=== PATIENT | male | born 1955 | race African-American/Black ===

== ENCOUNTER 2016-11-07 11:45 | Outpatient (CLI) | payer MEDICARE, OTHER ==
[~2016-11-07 11:45] MED LIST: BENAZEPRIL HCL20 MG ORAL; EYE DROPS15 M1 OP; FOLIC ACID1 MG ORAL; KEPPRA500 MG ORAL; LORATADINE10 M1 PO; NASAL SPRAY30 M1 NS; SERTRALINE HCL50 MG ORAL; ZOCOR20 M1 ORAL; ZYRTEC10 MG ORAL
--- NOTE | 2016-11-07 14:11 | Diagnostic Imaging Report ---
Indication: pain Findings: 3 views of the right hand were obtained. Normal bony mineralization and alignment are demonstrated. No acute fractures, erosions, or periosteal reaction are seen. Soft tissues are unremarkable. Impression: Negative examination of the right hand.
--- NOTE | 2016-11-07 14:12 | Diagnostic Imaging Report ---
Indication: pain Findings: 3 views of the left hand were obtained. Normal bony mineralization and alignment are demonstrated. No acute fractures, erosions, or periosteal reaction are seen. Soft tissues are unremarkable. Impression: Negative examination of the left hand.
== END 2016-11-07 13:45 | disposition home or self-care (01) ==
LOC: RAD 11:45
DX: M25.542 Pain in joints of left hand (principal); M25.541 Pain in joints of right hand

== ENCOUNTER 2017-08-31 11:38 | Emergency (ER) | payer MEDICARE, OTHER ==
[~2017-08-31] VITALS: Ht 165.1 cm; Wt 68.9 kg
[2017-08-31] MEDS ORDERED: BENAZEPRIL HCL20 MG ORAL (11:46)
[2017-08-31 11:58] VITALS: BP 191/96
[2017-08-31 12:23] LABS: BASOPHILS % (AUTO) 1.9 % (0.0-2.0); EOSINOPHILS % (AUTO) 17.7 % (0.0-3.0); HEMATOCRIT 48.9 % (42.0-52.0); HEMOGLOBIN 15.8 G/DL (14.2-18.0); MEAN CORPUSCULAR VOLUME 85 FL (80-99); MONOCYTES % (AUTO) 6.3 % (1.0-10.0); NEUTROPHILS % (AUTO) 53.2 % (45.0-75.0); PLATELET COUNT 119 K/UL (150-450); RED BLOOD COUNT 5.74 M/UL (4.70-6.10); RED CELL DISTRIBUTION WIDTH 11.5 % (11.6-14.8); WHITE BLOOD COUNT 6.6 K/UL (4.8-10.8)
[2017-08-31] MEDS ORDERED: Enalaprilat 2.5mg/2ml Inj IV ONE (12:30)
[2017-08-31 12:32] LABS: ANION GAP 7 mmol/L (5-15); BLOOD UREA NITROGEN 12 mg/dL (7-18); CALCIUM 8.6 MG/DL (8.5-10.1); CARBON DIOXIDE 28 MMOL/L (21-32); CHLORIDE 101 MMOL/L (98-107); POTASSIUM 4.4 MMOL/L (3.5-5.1); SODIUM 136 MMOL/L (136-145)
[2017-08-31 12:38] LABS: ALANINE AMINOTRANSFERASE 70 U/L (12-78); ALBUMIN 3.4 G/DL (3.4-5.0); ALBUMIN/GLOBULIN RATIO 0.8 (1.0-2.7); ALKALINE PHOSPHATASE 168 U/L (46-116); ASPARTATE AMINO TRANSFERASE 67 U/L (15-37); BILIRUBIN,TOTAL 0.9 MG/DL (0.2-1.0)
[2017-08-31 14:09] VITALS: BP 166/81
[2017-08-31 14:30] VITALS: BP 166/81
--- NOTE | 2017-09-01 07:14 | Emergency Room Report ---
History of Present Illness General Chief Complaint: Hypertension Present Illness HPI Patient is a 62-year-old male presented after increased blood pressure. Patient was sent in from clinic. Patient was noted to be followed by Dr. Hylton. The patient denies any headache. He denies any chest discomfort. He denies any visual changes. Patient noted be having blood pressure greater than 200 systolic. Patient denies any abdominal pain. He reports taking extra dose of his Lotensin. He denies any fever. He had been urinating normally. No severe pain. Allergies: Coded Allergies: ASPIRIN (Unverified Allergy, Mild, Itching, 11/18/13) Patient History Past Medical History: see triage record Reviewed Nursing Documentation: PMH: Agreed; PSxH: Agreed Nursing Documentation-PMH Hx Cardiac Problems: Yes Hx Hypertension: Yes Hx Cancer: No Hx Gastrointestinal Problems: Yes Hx Neurological Problems: Yes Hx Seizures: Yes - last episode was "6 or 7 months ago" Hx Memory Loss: Yes Hx Dizziness: Yes Review of Systems All Other Systems: negative except mentioned in HPI Physical Exam Vital Signs Date Time Temp Pulse Resp B/P (MAP) Pulse Ox O2 Delivery O2 Flow Rate FiO2 08/31/17 11:41 97.9 51 16 196/92 96 Room Air 97.9 Sp02 EP Interpretation: reviewed, normal General Appearance: normal inspection, well appearing, no apparent distress, alert, GCS 15 Head: atraumatic ENT: normal ENT inspection, hearing grossly normal, normal voice Neck: normal inspection, full range of motion, supple, no bony tend Respiratory: normal inspection, lungs clear, normal breath sounds, no respiratory distress, no retraction, no wheezing Cardiovascular #1: regular rate, rhythm, no edema Gastrointestinal: normal inspection, normal bowel sounds, non tender, soft, no guarding, no hernia Genitourinary: no CVA tenderness Musculoskeletal: normal inspection, back normal, normal range of motion Neurologic: normal inspection, alert, responsive, speech normal Psychiatric: normal inspection, judgement/insight normal, mood/affect normal Skin: normal inspection, normal color, no rash Medical Decision Making Diagnostic Impression: Primary Impression: Hypertension ER Course The patient presented for uncontrolled blood pressure. The differential diagnosis included was not limited to medication noncompliance, alcohol withdrawal, hypertensive crisis, adrenal tumor, substance abuse dietary discretion, substance abuse among others.Because of complexity of patient's case laboratory testing and imaging studies were ordered. The laboratory testing was unremarkable. Patient was noted to have elevated blood pressure and was given IV magnesium as well as Vasotec for blood pressure. The patient was noted to have some improvement in his pressure. Patient stated that he felt better and wanted to go home.The patient is advised to follow up with primary care doctor in 1-2 days. Patient is advised to return if any worsening condition or if any changes in status that are concerning. This report is dictated with [employer] client project coordinator software which may occasionally lead to discrepancies related to use of this software. Labs Test 08/31/17 12:10 White Blood Count 6.6 K/UL (4.8-10.8) Red Blood Count 5.74 M/UL (4.70-6.10) Hemoglobin 15.8 G/DL (14.2-18.0) Hematocrit 48.9 % (42.0-52.0) Mean Corpuscular Volume 85 FL (80-99) Mean Corpuscular Hemoglobin 27.6 PG (27.0-31.0) Mean Corpuscular Hemoglobin Concent 32.4 G/DL (32.0-36.0) Red Cell Distribution Width 11.5 % (11.6-14.8) Platelet Count 119 K/UL (150-450) Mean Platelet Volume 8.8 FL (6.5-10.1) Neutrophils (%) (Auto) 53.2 % (45.0-75.0) Lymphocytes (%) (Auto) 21.0 % (20.0-45.0) Monocytes (%) (Auto) 6.3 % (1.0-10.0) Eosinophils (%) (Auto) 17.7 % (0.0-3.0) Basophils (%) (Auto) 1.9 % (0.0-2.0) Sodium Level 136 MMOL/L (136-145) Potassium Level 4.4 MMOL/L (3.5-5.1) Chloride Level 101 MMOL/L (98-107) Carbon Dioxide Level 28 MMOL/L (21-32) Anion Gap 7 mmol/L (5-15) Blood Urea Nitrogen 12 mg/dL (7-18) Creatinine 1.0 MG/DL (0.55-1.30) Estimat Glomerular Filtration Rate > 60 mL/min (>60) Glucose Level 100 MG/DL (74-106) Calcium Level 8.6 MG/DL (8.5-10.1) Total Bilirubin 0.9 MG/DL (0.2-1.0) Aspartate Amino Transf (AST/SGOT) 67 U/L (15-37) Alanine Aminotransferase (ALT/SGPT) 70 U/L (12-78) Alkaline Phosphatase 168 U/L (46-116) Troponin I 0.007 ng/mL (0.000-0.056) Total Protein 7.5 G/DL (6.4-8.2) Albumin 3.4 G/DL (3.4-5.0) Globulin 4.1 g/dL Albumin/Globulin Ratio 0.8 (1.0-2.7) Lipase 161 U/L (73-393) Last Vital Signs Date Time Temp Pulse Resp B/P (MAP) Pulse Ox O2 Delivery O2 Flow Rate FiO2 08/31/17 14:30 97.9 47 15 166/81 100 Room Air Status: improved Disposition: HOME, SELF-CARE Condition: Improved Referrals: NON PHYSICIAN (PCP) Patient Instructions: Hypertension Alonso Lowery MD Sep 01, 2017 07:14
== END 2017-08-31 14:30 | disposition home or self-care (01) ==
LOC: EMR 12:11 → ENRESERV 13:54 → EDBEDREQ 13:57 → CANBEDREQ 13:59 → EMR 14:30
DX: I10 Essential (primary) hypertension (principal); Z86.69 Personal history of other diseases of the nervous system and sense organs; Z88.6 Allergy status to analgesic agent
CPT/HCPCS: 36415; 80053; 83690; 84484; 85025; 93005; 96360; 96374; 99284

== ENCOUNTER 2020-04-30 11:21 | Inpatient (IN) | payer MEDICARE, OTHER ==
[~2020-04-30] VITALS: Ht 165.1 cm; Wt 64.4 kg
[2020-04-30 11:49] VITALS: BP 115/75
--- NOTE | 2020-04-30 11:49 | NUR ---
Sandra mcfarland in [facility] - 04/30/20 at 1333 by MRIVERAO MARK Gongora:
--- NOTE | 2020-04-30 11:53 | Emergency Room Report ---
History of Present Illness General Chief Complaint: Abnormal Labs Source: Patient Present Illness HPI 64-year-old male with past medical history of heavy alcohol, HTN use presents to the emergency department for abnormal labs. He was called by his primary care doctor (Dr Hylton) who told him to present to the emergency department for further evaluation secondary to elevated liver function test. Patient denies any complaints at all whatsoever at this time. Last oral intake was this morning and was tolerated without any subsequent nausea, vomiting, diarrhea or GI issue. He states that he is having normal bowel movements and denies diarrhea, constipation, melena, hematochezia, hematuria, dysuria or any other symptoms. He does not recall his last colonoscopy. He does not recall last evaluation of his liver aside from routine serum liver tests that were performed in his primary care doctor's office on Sunday. The patient's symptoms were gradual onset, severity was moderate, duration since 1 week. Quality: Denies pain Past medical history: Heavy alcohol use, HTN Past surgical history: Cholecystectomy Smokin cigarettes/day Alcohol use: 2-3 beers every few days Drug use: Denies Review of systems: CONST: No fevers or chills, No night sweats PULMONARY: No productive cough, No shortness of breath CARDIAC: No chest pain, No palpitations GI: No vomiting, No diarrhea , No melena_or_BRBPR : No dysuria, No hematuria, No discharge NEURO: No new_focal_weakness_or_numbness, No confusion, No vision changes 14 point Review of Systems is otherwise negative except per HPI Physical Exam: GENERAL: Awake_alert_ nontoxic, no acute distress Spo2 98% on RA -normal EYES: Extraocular muscles are intact. Conjunctivae clear. Lids without swelling ENT: External nose and ear normal_in_appearance. Oropharynx clear. Head_atraumatic, Moist_oral_mucosa NECK: No JVD. No meningismus. No thyromegaly. Supple. Trachea midline RESP: Normal respiratory effort. Symmetric rise. No stridor. Clear_to_auscultation_No_rales_No_wheezes CARDIAC: Regular rate and regular rhytm. No_significant pedal edema. ABDOMEN: Soft. Nondistended. Nontender_No_rebound_or_guarding. MSK: Normal muscle tone, without rigidity. Extremities without asymmetric deformity or swelling. SKIN: Jaundiced. Warm and dry. No visible cyanosis or pallor NEUROLOGIC: Alert, oriented x3. Motor_and_sensation_grossly_intact. No truncal ataxia. Gait_normal Psych: Normal mood and affect, normal judgment and insight - COORDINATION OF CARE Case was discussed with: Patient Any labs and imaging that were ordered were interpreted as part of the medical decision making: Medical Decision Making/Plan: Differential diagnosis includes fatty liver, hepatitis, small bowel obstruction, volvulus, AAA, pancreatitis, atypical appendicitis, gastroparesis, gastritis, peptic ulcer disease, among others. Patient is well appearing with stable vital signs. Abdominal exam is non peritoneal with no guarding or rebound. No hepatosplenomegaly. Labs show transaminitis. T bili 9.5, D bili 6.9, AST 102, ALT 37, alk phos 168. Triglycerides and LDL are mildly elevated. HDL is within normal limits. On CBC, patient is newly thrombocytopenic. I suspect alcoholic hepatitis On chart review, previous hepatitis panel from 2015 was negative. The patient denies any bloody stool and has no pain out of proportion to exam, and no significant risk factors for mesenteric ischemia such as atrial fibrillation or severe PAD/PVD (peripheral arterial / vascular disease), thus definitive workup to rule out mesenteric ischemia was not pursued. Patient is afebrile, without any significant tenderness in the RUQ, and a negative [place] sign. The patients presentation does not appear to be consistent with acute cholecystitis and thus definitive imaging to rule it out was not pursued. The patient has no significant risk factors for AAA (abdominal aortic aneurysm) such as age over 50 with history of hypertension, connective tissue disorder, or 1st degree relative with AAA. the patient has normal dorsalis pedis pulses, no radiation of pain to the back, and no pulsatile mass felt on exam. The patients profile was overall low risk for AAA and definitive workup was not pursued. I spoke with Dr. Hylton, and reviewed the patients presentation, workup, results, and treatment. They will admit the patient for further care and evaluation, and assume care of the patient at this time. Allergies: Coded Allergies: ASPIRIN (Unverified Allergy, Mild, Itching, 11/18/13) COVID-19 Screening Contact w/high risk pt: No Experienced COVID-19 symptoms?: No COVID-19 Testing performed [employer]: No Nursing Documentation-PMH Past Medical History: No History, Except For Hx Cardiac Problems: Yes Hx Hypertension: Yes Hx Cancer: No Hx Gastrointestinal Problems: Yes Hx Neurological Problems: Yes Hx Seizures: Yes - last episode was "6 or 7 months ago" Hx Memory Loss: Yes Hx Dizziness: Yes Physical Exam Vital Signs Date Time Temp Pulse Resp B/P (MAP) Pulse Ox O2 Delivery O2 Flow Rate FiO2 04/30/20 11:26 98.1 71 18 122/72 (89) 96 Room Air Sp02 EP Interpretation: reviewed, normal Medical Decision Making Diagnostic Impression: Primary Impression: Elevated LFTs Additional Impressions: EtOH dependence Hypertension Tobacco dependence Hx of cholecystectomy Thrombocytopenia Hypokalemia Last Vital Signs Date Time Temp Pulse Resp B/P (MAP) Pulse Ox O2 Delivery O2 Flow Rate FiO2 04/30/20 11:26 98.1 71 18 122/72 (89) 96 Room Air Disposition: ADMITTED INPATIENT Admit Decision Time: 13:00 Condition: Stable Zeny Gao D.O. Apr 30, 2020 11:53
[2020-04-30 12:00] LABS: HEMATOCRIT 39.9 % (42.0-52.0); HEMOGLOBIN 13.4 G/DL (14.2-18.0); MEAN CORPUSCULAR VOLUME 90 FL (80-99); PLATELET COUNT 78 K/UL (150-450); RED BLOOD COUNT 4.45 M/UL (4.70-6.10); RED CELL DISTRIBUTION WIDTH 15.3 % (11.6-14.8); WHITE BLOOD COUNT 6.5 K/UL (4.8-10.8)
[2020-04-30 12:15] LABS: CHOLESTEROL 177 MG/DL (< 200); HDL CHOLESTEROL 17 MG/DL (40-60); TRIGLYCERIDES 177 MG/DL (30-150)
[2020-04-30 12:32] LABS: ANION GAP 11 mmol/L (5-15); BLOOD UREA NITROGEN 12 mg/dL (7-18); CALCIUM 8.4 MG/DL (8.5-10.1); CARBON DIOXIDE 26 MMOL/L (21-32); CHLORIDE 99 MMOL/L (98-107); CREATININE 0.9 MG/DL (0.55-1.30); POTASSIUM 3.4 MMOL/L (3.5-5.1); SODIUM 136 MMOL/L (136-145)
[2020-04-30 12:42] LABS: ALANINE AMINOTRANSFERASE 37 U/L (12-78); ALBUMIN 2.3 G/DL (3.4-5.0); ALBUMIN/GLOBULIN RATIO 0.4 (1.0-2.7); ALKALINE PHOSPHATASE 168 U/L (46-116); ASPARTATE AMINO TRANSFERASE 102 U/L (15-37); BILIRUBIN,DIRECT 6.9 MG/DL (0.0-0.3); BILIRUBIN,TOTAL 9.5 MG/DL (0.2-1.0)
--- NOTE | 2020-04-30 12:49 | NUR ---
ER note: Pt report her that his DrSamantha call him and told him that his liver was bad and he will have to go to the ER. also pt report that he woke up with a nose bleed.
--- NOTE | 2020-04-30 12:58 | NUR ---
ED Nurse Note: PT WITH AMMONIA LEVEL DONE
[2020-04-30 13:43] VITALS: BP 103/60
[2020-04-30 15:43] LABS: APPEARANCE,URINE CLEAR; BILIRUBIN, URINE 1+ (NEGATIVE); GLUCOSE, URINE (UA) NEGATIVE (NEGATIVE); KETONES,URINE NEGATIVE (NEGATIVE); LEUKOCYTE ESTERASE ,URINE NEGATIVE (NEGATIVE); NITRITE,URINE NEGATIVE (NEGATIVE); PH,URINE 7 (4.5-8.0); PROTEIN,URINE NEGATIVE (NEGATIVE); UROBILINOGEN,URINE 4 MG/DL (0.0-1.0)
[2020-04-30 15:44] VITALS: BP_SYST 10; BP_SYST 106; BP_DIAS 60; BP_DIAS 65
[2020-04-30 15:46] LABS: COLOR,URINE AMBER
--- NOTE | 2020-04-30 16:15 | NUR ---
Call and give report to Shaylee MONTEIRO.
--- NOTE | 2020-04-30 16:16 | NUR ---
NURSE NOTES: Received hand-off report from Luz Marina De La Torre RN via telephone, awaiting patient arrival to shortly.
--- NOTE | 2020-04-30 16:38 | NUR ---
NURSE NOTES: Patient arrived to [facility] via wheelchair without any incidents, patient safely placed onto midland bed. Patient alert and oriented x4, breathing even and unlabored on room air. Bed in lowest position, call light within reach, bed alarm on, side rails padded and upx2.
[2020-04-30 16:40] VITALS: BP 117/74
--- NOTE | 2020-04-30 16:45 | NUR ---
NURSE NOTES: Notified Dr. Hylton regarding admission orders and that patient has arrived to the floor already.
--- NOTE | 2020-04-30 18:47 | NUR ---
NURSE NOTES: Bed alarm on, side rails padded, no bleeding noted/observed/stated by patient.
--- NOTE | 2020-04-30 19:35 | NUR ---
NURSE HAND-OFF: Important Events on Shift: admission, unable to clarify home medications with the patient Patient Status: full code, stable condition, alert and oriented x4 Diet: regular Pending Orders: [] Pending Results/Labs:[] Pending MD notification:[] Latest Vital Signs: Temperature 98.0 , Pulse 62 , B/P 115 /62 , Respiratory Rate 19 , O2 SAT 99 , Room Air, O2 Flow Rate . Vital Sign Comment: [] Latest Montiel Fall Score: 70 Fall Risk: High Risk Safety Measures: Call light Within Reach, Bed Alarm Zone 2, Side Rails Side Rails x2, Bed position Low and Locked. Fall Precautions: Yellow Socks Yellow Gown Patient Fall Education Report given to Ronald Johnson RN.
--- NOTE | 2020-04-30 19:45 | NUR ---
NURSE NOTES: Received report from Stephen MONTEIRO. Patient is awake, alert and oriented x4. On room air, breathing is even and unlabored. No complains of pain or distress noted. Patient was hungry and snacks given per patient request. IV right FA intact and patent with no bleeding noted. Side rails are padded. Bed low and locked. Call light within reach.
[2020-04-30 20:00] VITALS: BP 101/64
[2020-05-01] VITALS: BP 111/67
[2020-05-01 04:00] VITALS: BP 109/62
[2020-05-01 06:29] LABS: HEMATOCRIT 34.8 % (42.0-52.0); HEMOGLOBIN 11.8 G/DL (14.2-18.0); MEAN CORPUSCULAR VOLUME 92 FL (80-99); PLATELET COUNT 56 K/UL (150-450); RED BLOOD COUNT 3.78 M/UL (4.70-6.10); RED CELL DISTRIBUTION WIDTH 15.7 % (11.6-14.8); WHITE BLOOD COUNT 5.1 K/UL (4.8-10.8)
[2020-05-01 07:11] LABS: ALANINE AMINOTRANSFERASE 30 U/L (12-78); ALBUMIN 1.8 G/DL (3.4-5.0); ALBUMIN/GLOBULIN RATIO 0.4 (1.0-2.7); ALKALINE PHOSPHATASE 141 U/L (46-116); AMMONIA 54 umol/L (11-32); ANION GAP 6 mmol/L (5-15); ASPARTATE AMINO TRANSFERASE 80 U/L (15-37); BILIRUBIN,TOTAL 7.7 MG/DL (0.2-1.0); BLOOD UREA NITROGEN 12 mg/dL (7-18); CALCIUM 8.2 MG/DL (8.5-10.1); CARBON DIOXIDE 29 MMOL/L (21-32); CHLORIDE 103 MMOL/L (98-107); CREATININE 0.9 MG/DL (0.55-1.30); POTASSIUM 3.5 MMOL/L (3.5-5.1); SODIUM 138 MMOL/L (136-145)
[2020-05-01 07:17] LABS: INR 1.6 (0.9-1.1)
[2020-05-01 07:18] LABS: BILIRUBIN,DIRECT 5.9 MG/DL (0.0-0.3)
--- NOTE | 2020-05-01 07:36 | NUR ---
NURSE HAND-OFF: Important Events on Shift: Seizure precaution Patient Status: Stable Diet: Regular Pending Orders: [] Pending Results/Labs:[] Pending MD notification:[] Latest Vital Signs: Temperature 98.1 , Pulse 59 , B/P 109 /62 , Respiratory Rate 18 , O2 SAT 95 , Room Air, O2 Flow Rate . Vital Sign Comment: VS stable Latest Montiel Fall Score: 70 Fall Risk: High Risk Safety Measures: Call light Within Reach, Bed Alarm Zone 2, Side Rails Side Rails x2, Bed position Low and Locked. Fall Precautions: Patient Fall Education Report given to Cheyanne MONTEIRO.
[2020-05-01 08:00] VITALS: BP 108/60
--- NOTE | 2020-05-01 09:34 | NUR ---
CASE MANAGEMENT:REVIEW 64 YR OLD MALE PRESENTED TO ER CC: SENT TO ER BY D/T ABNORMAL LABS PMH: CIRRHOSIS SI: ELEVATED LFT'S. HYPOKALEMIA. ETOH DEPENDENCE 98.1 71 18 103/60 96% ON RA PLT-78 K-3.4 TBILI+9.5/6.9 AMMONIA+67 IS: KCL PO X1 KEPPRA PO Q12 URINE REFLEX : TO MED/SURG UNIT DCP: FROM HOME
--- NOTE | 2020-05-01 11:00 | NUR ---
NURSE NOTES: Report given to Brennon MONTEIRO.
--- NOTE | 2020-05-01 11:00 | NUR ---
NURSE NOTES: Spoke to regarding Keppra and new order received. Order read back and carried out.
--- NOTE | 2020-05-01 11:30 | NUR ---
NURSE NOTES: RN received report from Cheyanne as the patient was reassigned. Patient is lying on the bed, aaoX4. Patient denies respiratory distress or pain. Bed in lowest position, locked, bed alarm on. Call light within reach and able to make needs known. RN told the patient not to eat anything until abdominal US is done. Patient verbalized understanding.
--- NOTE | 2020-05-01 11:53 | History & Physical ---
History and Physical History & Physicial History and Physical HPI Patient is a 64-year-old man with past medical history of heavy alcohol use, Hypertension,admitted with abnormalliver functions. Denies current complaints, denies nausea, vomiting, diarrhea or GI issue. He states that he is having normal bowel movements and denies diarrhea, constipation, melena, hematochezia, hematuria, dysuria or any other symptoms. The patient's symptoms were gradual onset, severity was moderate, duration since 1 week. Past Medical History: Alcohol use, Hypertension,Seizure History, Glaucoma Past Surgical History: Cholecystectomy Social History:Smokin cigarettes/day, heavy alcohol use, no drug use Family History:NE Review of systems: 14 point Review of Systems is otherwise negative except per HPI Allergies: ASPIRIN (Unverified Allergy, Mild, Itching, 11/18/13) Physical Exam Vital Signs Noted Physical Exam: GENERAL: Awake, WDWN EYES: Extraocular muscles are intact. Mild jaundice. ENT: External nose and ear normal in appearance. NCAT,moist mm NECK: No JVD. No meningismus. No thyromegaly. Supple. Trachea midline RESP: Normal respiratory effort. Symmetric rise. No stridor. CTAB CARDIAC: Regular rate and regular rhythm. No edema. ABDOMEN: Soft. Nondistended. Nontender, No rebound/guarding. MSK: Normal muscle tone, without rigidity. Extremities without asymmetric deformity or swelling. SKIN: Jaundiced. Warm and dry. No visible cyanosis or pallor NEUROLOGIC: Alert, oriented x3. 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
[2020-05-01 12:00] VITALS: BP 99/63
[2020-05-01] MEDS ORDERED: LORazepam 0.5mg tab ORAL PRN (12:00)
[2020-05-01] MEDS ORDERED: Lisinopril 10mg tab ORAL ONE (12:00)
--- NOTE | 2020-05-01 12:30 | NUR ---
NURSE NOTES: RN received orders from Dr. Sanabria. Orders read back one by one and carried out. Pharmacy is out of stock with Benazepril and the pharmacist stated that Lisinopril is the equivalent medication that is available. RN notified Dr. Sanabria. No further orders at this time.
[2020-05-01] MEDS ORDERED: Lisinopril 10mg tab ORAL SCH (13:00)
--- NOTE | 2020-05-01 13:00 | NUR ---
NURSE NOTES: RN notified Dr. Sanabria of patient's low BP. RN received an order to DC Lisinopril and reduce the dose to 12.5 for Metoprolol. RN verified the orders one by one and carried out.
--- NOTE | 2020-05-01 13:47 | NUR ---
RADIOLOGY DEPT., CHEST X-RAY DONE.-P.DYE
--- NOTE | 2020-05-01 13:55 | Diagnostic Imaging Report ---
FILM CXR 1 VIEW History: Infection Comparison: None Findings: Elevation of the right hemidiaphragm. Normal heart size. Mild bronchial thickening. Right lower lobe opacity demonstrated. No effusion or pneumothorax. No acute osseous abnormality. Impression: Right lower lobe pneumonia.
--- NOTE | 2020-05-01 14:15 | NUR ---
NURSE NOTES: RN notified Dr. Sanabria of chest xray result indicating right lower lobe pneumonia. No further orders at this time.
--- NOTE | 2020-05-01 14:28 | Diagnostic Imaging Report ---
US VENOUS BILATERAL LOWER EXTREMITIES INDICATION: DVT TECHNIQUE: Real-time sonographic imaging of the bilateral common femoral, superficial femoral and popliteal veins is performed utilizing intermittent compression. The study is supplemented with color flow imaging and duplex Doppler during spontaneous flow, Valsalva and calf augmentation. COMPARISON: None FINDINGS: Normal compressibility is demonstrated from the common femoral vein to the popliteal vein bilaterally. There is normal response to Valsalva and augmentation. Normal spontaneous phasic flow is noted. IMPRESSION: No evidence of deep venous thrombosis.
--- NOTE | 2020-05-01 14:36 | Diagnostic Imaging Report ---
US ABDOMEN HISTORY: Ultrasound abdomen complete INDICATION: Abnormal labs COMPARISON: None TECHNIQUE: Real-time sonographic evaluation of the abdomen is performed using grayscale and color flow. FINDINGS: The liver demonstrates increased echogenicity and measures 12. 26 cm. The portal vein is patent with appropriate direction of flow. The common duct is not abnormally dilated. Common bile duct measures 5.4 mm The gallbladder demonstrates no abnormal wall thickening, pericholecystic free fluid, or shadowing echogenic foci. Visualized portions of the pancreas are within normal limits. The spleen is normal in size and echogenicity. The right kidney measures 10.73 cm in length. No contour deforming masses, hydronephrosis, or shadowing echogenic stones are identified. Renal cortical echogenicity is echogenicity. Multiple cysts demonstrated The left kidney measures 11.1 cm in length. No contour deforming masses, hydronephrosis, or shadowing echogenic stones are identified. Renal cortical echogenicity is echogenicity. Multiple cysts demonstrated Visualized portions of the aorta and IVC are unremarkable. No free fluid is identified. IMPRESSION: Fatty changes of the liver. No gallstones. Bilateral renal cysts. Enlarged spleen.
[2020-05-01 16:00] VITALS: BP 89/55
--- NOTE | 2020-05-01 16:56 | NUR ---
NURSE NOTES: Patient not suitable for PO intake since he is not able to swallow his own phlegm.
--- NOTE | 2020-05-01 16:57 | NUR ---
NURSE NOTES: RN received order for hydralazine IV 10mg for SBP greater than 160 q 4 hr PRN. Order verified and carried out. Addendum: 05/01/20 at 1659 by Brennon Lynn RN Documented in error. Please disregard.
--- NOTE | 2020-05-01 19:10 | NUR ---
NURSE NOTES: received pt and report from CAYETANO Willett. pt alert and oriented x 4 with no acute s/s of distress and no co pain. Plan of care discussed. IV site celan dry and intact and saline locked.
--- NOTE | 2020-05-01 19:22 | NUR ---
NURSE NOTES: RN unable to collect stool for occult blood since the patient did not have a BM. RN educated the patient to press the call light before BM. Patient verbalized understanding.
--- NOTE | 2020-05-01 19:49 | NUR ---
NURSE HAND-OFF: Important Events on Shift:put SCD if venous duplex comes out as negative, order CBC, BMP and liver function tests daily and endorse these orders to the next morning nurse, occult blood Patient Status: stable Diet: cardiac and renal Pending Orders: venous duplex, occult blood Pending Results/Labs:venous duplex Pending MD notification:n/a Latest Vital Signs: Temperature 98.1 , Pulse 63 , B/P 89 /55 , Respiratory Rate 16 , O2 SAT 95 , Room Air, O2 Flow Rate . Vital Sign Comment: low BP Latest Montiel Fall Score: 70 Fall Risk: High Risk Safety Measures: Call light Within Reach, Bed Alarm Zone 2, Side Rails Side Rails x2, Bed position Low and Locked. Fall Precautions: Patient Fall Education Report given to Artem Shabazz.
[2020-05-01 20:00] VITALS: BP 128/75
[2020-05-01] MEDS: Metoprolol Tartrate 12.5mg TAB ORAL SCH (20:17)
[2020-05-02 00:12] VITALS: BP 107/64
--- NOTE | 2020-05-02 00:12 | NUR ---
NURSE NOTES: vital signs stable. pt asleep currently. no acute s/s of distress, no co pain.
[2020-05-02 03:54] VITALS: BP 102/64
--- NOTE | 2020-05-02 03:55 | NUR ---
NURSE NOTES: vital signs are stable at this time. no co pain. no acute distress noted. pt asleep.
--- NOTE | 2020-05-02 06:13 | NUR ---
NURSE HAND-OFF: Important Events on Shift:NA Patient Status: stable Diet: cardiac Pending Orders: NA Pending Results/Labs:NA Pending MD notification:NA Latest Vital Signs: Temperature 97.8 , Pulse 57 , B/P 102 /64 , Respiratory Rate 16 , O2 SAT 95 , Room Air, O2 Flow Rate . Vital Sign Comment: stable through the shift Latest Montiel Fall Score: 70 Fall Risk: High Risk Safety Measures: Call light Within Reach, Bed Alarm Zone 2, Side Rails Side Rails x2, Bed position Low and Locked. Fall Precautions: Patient Fall Education Report will be given to CAYETANO Willett.
--- NOTE | 2020-05-02 07:52 | NUR ---
NURSE NOTES: RN received report from Artem and patient lying in bed, aaoX4. Patient denies respiratory distress or pain. IV intact, patent, dry and asymptomatic. Bed in lowest position, locked. Side rails up X2. Seizure precautions in place. Call light within reach and able to make needs known. Care plan communicated. Will continue to monitor.
[2020-05-02 08:00] VITALS: BP 105/62
[2020-05-02] MEDS: Metoprolol Tartrate 12.5mg TAB ORAL SCH ×3 (09:00→20:59)
--- NOTE | 2020-05-02 09:07 | General Progress Note ---
Subjective ROS Limited/Unobtainable: Yes Allergies: Coded Allergies: ASPIRIN (Unverified Allergy, Mild, Itching, 11/18/13) Objective Last 24 Hour Vital Signs Date Time Temp Pulse Resp B/P (MAP) Pulse Ox O2 Delivery O2 Flow Rate FiO2 05/02/20 08:00 97.7 61 18 105/62 (76) 96 05/02/20 03:54 97.8 57 16 102/64 (77) 95 05/02/20 00:12 97.9 69 16 107/64 (78) 96 05/01/20 21:00 Room Air 05/01/20 20:17 66 128/75 05/01/20 20:00 98.7 66 16 128/75 (92) 96 05/01/20 16:00 98.1 63 16 89/55 (66) 95 05/01/20 13:00 99/63 05/01/20 12:00 98.2 68 17 99/63 (75) 95 05/01/20 11:49 Room Air Intake and Output 05/01/20 05/02/20 19:00 07:00 Intake Total 360 ml Output Total 600 ml Balance -600 ml 360 ml Other 360 ml Output Urine Total 600 ml # Voids 2 Laboratory Tests 05/01/20 21:00: Stool Occult Blood Negative Height (Feet): 5 Height (Inches): 5.00 Weight (Pounds): 142 General Appearance: alert EENT: normal ENT inspection Neck: supple Cardiovascular: normal rate Respiratory/Chest: accessory muscle use Abdomen: hypoactive bowel sounds Extremities: non-tender Assessment/Plan Assessment/Plan: ETOH liver 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
[2020-05-02 09:41] LABS: HEMATOCRIT 37.1 % (42.0-52.0); HEMOGLOBIN 12.5 G/DL (14.2-18.0); MEAN CORPUSCULAR VOLUME 94 FL (80-99); PLATELET COUNT 62 K/UL (150-450); RED BLOOD COUNT 3.96 M/UL (4.70-6.10); RED CELL DISTRIBUTION WIDTH 15.5 % (11.6-14.8); WHITE BLOOD COUNT 5.2 K/UL (4.8-10.8)
[2020-05-02] MEDS: Thiamine 100mg tab ORAL SCH (09:45)
[2020-05-02 09:48] LABS: INR 1.6 (0.9-1.1)
[2020-05-02 09:54] LABS: ALANINE AMINOTRANSFERASE 33 U/L (12-78); ALBUMIN 1.7 G/DL (3.4-5.0); ALKALINE PHOSPHATASE 162 U/L (46-116); ASPARTATE AMINO TRANSFERASE 87 U/L (15-37); BILIRUBIN,DIRECT 5.7 MG/DL (0.0-0.3); BILIRUBIN,TOTAL 6.7 MG/DL (0.2-1.0)
[2020-05-02] MEDS ORDERED: Azithromycin 500 MG in D5W 275 ML IV SCH (10:00)
[2020-05-02 10:10] LABS: ALANINE AMINOTRANSFERASE 35 U/L (12-78); ALBUMIN 1.9 G/DL (3.4-5.0); ALBUMIN/GLOBULIN RATIO 0.4 (1.0-2.7); ALKALINE PHOSPHATASE 159 U/L (46-116); AMYLASE 77 U/L (25-115); ANION GAP 4 mmol/L (5-15); ASPARTATE AMINO TRANSFERASE 87 U/L (15-37); BILIRUBIN,TOTAL 6.7 MG/DL (0.2-1.0); BLOOD UREA NITROGEN 11 mg/dL (7-18); CALCIUM 8.2 MG/DL (8.5-10.1); CARBON DIOXIDE 30 MMOL/L (21-32); CHLORIDE 105 MMOL/L (98-107); CREATININE 1.1 MG/DL (0.55-1.30); POTASSIUM 3.9 MMOL/L (3.5-5.1); SODIUM 139 MMOL/L (136-145)
[2020-05-02] MEDS ORDERED: Phytonadione 1 MG in D5W 55 ML IVPB SCH (11:00)
[2020-05-02 12:00] VITALS: BP 115/68
--- NOTE | 2020-05-02 12:33 | Consultation ---
History of Present Illness General Date patient seen: May 02, 2020 Reason for Hospitalization: Abnormal Labs Present Illness Allergies: Coded Allergies: ASPIRIN (Unverified Allergy, Mild, Itching, 11/18/13) COVID-19 Screening Contact w/high risk pt: No Experienced COVID-19 symptoms?: No Medication History Scheduled Benazepril Hcl* (Benazepril Hcl*), 20 MG ORAL DAILY, (Reported) Levetiracetam (Keppra), 1,000 MG ORAL EVERY 12 HOURS, (Reported) Oxymetazoline Hcl (Nasal [place]), 30 ML NS DAILY, (Reported) Sertraline Hcl* (Zoloft*), 100 MG ORAL DAILY, (Reported) Simvastatin (Zocor), 20 MG ORAL BEDTIME, (Reported) Tetrahydrz/Dext 70/Peg 400/Pvp (Eye Drops), 15 ML OP DAILY, (Reported) Patient History History Provided By: Patient, Medical Record, PMD Healthcare decision maker N Resuscitation status Advanced Directive on File Past Medical/Surgical History Past Medical/Surgical History: (1) Osteoarthritis (2) Internal hemorrhoids (3) Seizure (4) LFT elevation (5) Diverticulosis (6) HTN (hypertension) (7) Hypokalemia (8) Thrombocytopenia (9) Tobacco dependence (10) Hypertension (11) Elevated LFTs (12) EtOH dependence (13) Transaminitis (14) S/P ERCP (15) Hx of cholecystectomy Review of Systems Review of Symptoms General ROS: no weight loss or fever Psychological ROS: no depression or mood changes, no memory loss Ophthalmic ROS: no visual changes or eye irritation ENT ROS: no nasal congestion, hearing loss, dizziness Allergy and Immunology ROS: no allergic symptoms or urticaria Hematological and Lymphatic ROS: no swollen glands, unusual bleeding or bruising Endocrine ROS: no polyuria, polydipsia, weight changes, temperature intolerance Respiratory ROS: no cough, shortness of breath, or wheezing Cardiovascular ROS: no chest pain or dyspnea on exertion Gastrointestinal ROS: denies abdominal pain, bright red blood in stool. Musculoskeletal ROS: no myalgias or arthralgias Neurological ROS: no TIA or stroke symptoms Dermatological ROS: no new or changing skin lesions, rashes or pruritis Physical Exam Physical Exam General appearance: alert, cooperative, no distress, appears stated age Head: Normocephalic, without obvious abnormality, atraumatic Eyes: conjunctivae/corneas clear. PERRL, EOM's intact. Fundi benign Throat: Lips, mucosa, and tongue normal. Teeth and gums normal Neck: supple, symmetrical, trachea midline, no adenopathy, thyroid: not enlarged, symmetric, no tenderness/mass/nodules, no carotid bruit and no JVD Lungs: clear to auscultation bilaterally Heart: regular rate and rhythm, S1, S2 normal, no murmur, click, rub or gallop Abdomen: soft, non-tender. Bowel sounds normal. No masses, no organomegaly Extremities: extremities normal, atraumatic, no cyanosis or edema Pulses: 2+ and symmetric Skin: Skin color, texture, turgor normal. No rashes or lesions Neurologic: Grossly normal Last 24 Hour Vital Signs Date Time Temp Pulse Resp B/P (MAP) Pulse Ox O2 Delivery O2 Flow Rate FiO2 05/02/20 09:00 61 105/62 05/02/20 08:00 97.7 61 18 105/62 (76) 96 05/02/20 03:54 97.8 57 16 102/64 (77) 95 05/02/20 00:12 97.9 69 16 107/64 (78) 96 05/01/20 21:00 Room Air 05/01/20 20:17 66 128/75 05/01/20 20:00 98.7 66 16 128/75 (92) 96 05/01/20 16:00 98.1 63 16 89/55 (66) 95 05/01/20 13:00 99/63 Intake and Output 05/01/20 05/02/20 19:00 07:00 Intake Total 360 ml Output Total 600 ml Balance -600 ml 360 ml Other 360 ml Output Urine Total 600 ml # Voids 2 Laboratory Tests Test 05/01/20 21:00 05/02/20 08:30 Stool Occult Blood Negative (NEGATIVE) White Blood Count 5.2 K/UL (4.8-10.8) Red Blood Count 3.96 M/UL (4.70-6.10) L Hemoglobin 12.5 G/DL (14.2-18.0) L Hematocrit 37.1 % (42.0-52.0) L Mean Corpuscular Volume 94 FL (80-99) Mean Corpuscular Hemoglobin 31.5 PG (27.0-31.0) H Mean Corpuscular Hemoglobin Concent 33.6 G/DL (32.0-36.0) Red Cell Distribution Width 15.5 % (11.6-14.8) H Platelet Count 62 K/UL (150-450) L Mean Platelet Volume 9.9 FL (6.5-10.1) Neutrophils (%) (Auto) % (45.0-75.0) Lymphocytes (%) (Auto) % (20.0-45.0) Monocytes (%) (Auto) % (1.0-10.0) Eosinophils (%) (Auto) % (0.0-3.0) Basophils (%) (Auto) % (0.0-2.0) Differential Total Cells Counted 100 Neutrophils % (Manual) 60 % (45-75) Lymphocytes % (Manual) 15 % (20-45) L Monocytes % (Manual) 7 % (1-10) Eosinophils % (Manual) 18 % (0-3) H Basophils % (Manual) 0 % (0-2) Band Neutrophils 0 % (0-8) Platelet Estimate Decreased L Platelet Morphology Normal Hypochromasia 1+ Anisocytosis 1+ Prothrombin Time 16.6 SEC (9.30-11.50) H Prothromb Time International Ratio 1.6 (0.9-1.1) H Activated Partial Thromboplast Time 33 SEC (23-33) Sodium Level 139 MMOL/L (136-145) Potassium Level 3.9 MMOL/L (3.5-5.1) Chloride Level 105 MMOL/L (98-107) Carbon Dioxide Level 30 MMOL/L (21-32) Anion Gap 4 mmol/L (5-15) L Blood Urea Nitrogen 11 mg/dL (7-18) Creatinine 1.1 MG/DL (0.55-1.30) Estimat Glomerular Filtration Rate > 60 mL/min (>60) Glucose Level 134 MG/DL (74-106) H Calcium Level 8.2 MG/DL (8.5-10.1) L Total Bilirubin 6.7 MG/DL (0.2-1.0) H Direct Bilirubin 5.7 MG/DL (0.0-0.3) H Aspartate Amino Transf (AST/SGOT) 87 U/L (15-37) H Alanine Aminotransferase (ALT/SGPT) 33 U/L (12-78) Alkaline Phosphatase 162 U/L (46-116) H Total Protein 6.0 G/DL (6.4-8.2) L Albumin 1.7 G/DL (3.4-5.0) L Globulin 4.6 g/dL Albumin/Globulin Ratio 0.4 (1.0-2.7) L Amylase Level 77 U/L (25-115) Lipase 179 U/L (73-393) Height (Feet): 5 Height (Inches): 5.00 Weight (Pounds): 142 Medications Current Medications Medications (Trade) Dose Ordered Sig/Aman Route PRN Reason Start Time Stop Time Status Last Admin Dose Admin Azithromycin 250 mg/Dextrose 275 ml @ 275 mls/hr Q24HRS IV 05/03/20 10:00 05/08/20 09:59 Clonidine HCl (Catapres Tab) 0.1 mg Q6H PRN ORAL For High Blood Pressure 05/01/20 12:00 07/29/20 17:14 Levetiracetam (Keppra) 1,000 mg BEDTIME ORAL 05/01/20 21:00 05/30/20 20:59 05/01/20 20:17 Lorazepam (Ativan) 0.5 mg Q4H PRN ORAL Agitation 05/01/20 12:00 05/08/20 11:59 Metoprolol Tartrate (Lopressor) 12.5 mg Q12HR ORAL 05/01/20 21:00 07/30/20 20:59 05/01/20 20:17 Multivitamins (Multivitamins) 1 tab DAILY ORAL 05/02/20 09:00 06/01/20 08:59 05/02/20 09:45 Pantoprazole (Protonix) 40 mg DAILY ORAL 05/02/20 09:00 06/01/20 08:59 05/02/20 09:44 Phytonadione 1 mg/ Dextrose 55.5 ml @ 222 mls/hr ONCE IVPB 05/02/20 11:00 05/02/20 13:00 05/02/20 11:49 Potassium Chloride (K-Dur) 20 meq DAILY ORAL 05/02/20 09:00 07/31/20 08:59 05/02/20 09:45 Thiamine HCl (Vitamin B1) 100 mg DAILY ORAL 05/02/20 09:00 06/01/20 08:59 05/02/20 09:45 Assessment/Plan Problem List: (1) Hypokalemia ICD Codes: E87.6 - Hypokalemia SNOMED: 66411973 (2) Thrombocytopenia ICD Codes: D69.6 - Thrombocytopenia, unspecified SNOMED: 337075058 (3) Tobacco dependence ICD Codes: F17.200 - Nicotine dependence, unspecified, uncomplicated SNOMED: 38756284 (4) Hypertension ICD Codes: I10 - Essential (primary) hypertension SNOMED: 05231278 (5) Elevated LFTs Assessment & Plan: 62-year-old male with transaminitis. T bili noted direct bili noted. Patient with a EtOH history. States pain onset recently. Labs noted was called by his primary care physician admitted. Ultrasound reviewed no gallbladder issues no pancreatic issues liver insufficiency likely related to EtOH use. N.p.o. IV fluids meds as written GI input appreciated no acute surgical intervention planned will follow with recommendations thank you The liver demonstrates increased echogenicity and measures 12. 26 cm. The portal vein is patent with appropriate direction of flow. The common duct is not abnormally dilated. Common bile duct measures 5.4 mm The gallbladder demonstrates no abnormal wall thickening, pericholecystic free fluid, or shadowing echogenic foci. Visualized portions of the pancreas are within normal limits. The spleen is normal in size and echogenicity. The right kidney measures 10.73 cm in length. No contour deforming masses, hydronephrosis, or shadowing echogenic stones are identified. Renal cortical echogenicity is echogenicity. Multiple cysts demonstrated The left kidney measures 11.1 cm in length. No contour deforming masses, hydronephrosis, or shadowing echogenic stones are identified. Renal cortical echogenicity is echogenicity. Multiple cysts demonstrated Visualized portions of the aorta and IVC are unremarkable. No free fluid is identified. ICD Codes: R79.89 - Elevated LFTs SNOMED: 404398778 (6) EtOH dependence ICD Codes: F10.20 - Alcohol dependence, uncomplicated SNOMED: 49360787, 580160915 (7) Internal hemorrhoids ICD Codes: K64.8 - Internal hemorrhoids SNOMED: 33474031 (8) Diverticulosis ICD Codes: K57.90 - Diverticulosis SNOMED: 892380241 (9) Osteoarthritis ICD Codes: M19.90 - Osteoarthritis SNOMED: 502916052 (10) Seizure ICD Codes: R56.9 - Seizure SNOMED: 96232252 (11) HTN (hypertension) ICD Codes: I10 - HTN (hypertension) SNOMED: 19714642 (12) Transaminitis ICD Codes: R74.01 - Elevation of levels of liver transaminase levels SNOMED: 630809087, 774271399 (13) LFT elevation ICD Codes: R79.89 - Other specified abnormal findings of blood chemistry SNOMED: 129487653 (14) Hx of cholecystectomy ICD Codes: Z98.89 - Hx of cholecystectomy SNOMED: 321793453 (15) S/P ERCP ICD Codes: Z98.89 - Other specified postprocedural states SNOMED: 935801732, 186155505 Gavin Vuong May 02, 2020 12:33
[2020-05-02 16:00] VITALS: BP 115/74
--- NOTE | 2020-05-02 19:19 | NUR ---
NURSE HAND-OFF: Important Events on Shift:antibiotics Patient Status: stable Diet: cardiac Pending Orders: n/a Pending Results/Labs:n/a Pending MD notification:n/a Latest Vital Signs: Temperature 98.2 , Pulse 61 , B/P 115 /74 , Respiratory Rate 18 , O2 SAT 96 , Room Air, O2 Flow Rate . Vital Sign Comment: stable Latest Montiel Fall Score: 70 Fall Risk: High Risk Safety Measures: Call light Within Reach, Bed Alarm Zone 2, Side Rails Side Rails x2, Bed position Low and Locked. Fall Precautions: Patient Fall Education Report given to Artem.
--- NOTE | 2020-05-02 19:32 | Pulmonology Progress Note ---
Subjective ROS Limited/Unobtainable: Yes Allergies: Coded Allergies: ASPIRIN (Unverified Allergy, Mild, Itching, 11/18/13) Objective Last 24 Hour Vital Signs Date Time Temp Pulse Resp B/P (MAP) Pulse Ox O2 Delivery O2 Flow Rate FiO2 05/02/20 19:27 Room Air 05/02/20 16:00 98.2 61 18 115/74 (88) 96 05/02/20 12:00 97.1 61 18 115/68 (84) 97 05/02/20 09:00 61 105/62 05/02/20 09:00 Room Air 05/02/20 08:00 97.7 61 18 105/62 (76) 96 05/02/20 03:54 97.8 57 16 102/64 (77) 95 05/02/20 00:12 97.9 69 16 107/64 (78) 96 05/01/20 21:00 Room Air 05/01/20 20:17 66 128/75 05/01/20 20:00 98.7 66 16 128/75 (92) 96 Intake and Output 05/01/20 05/02/20 19:00 07:00 Intake Total 360 ml Output Total 600 ml Balance -600 ml 360 ml Other 360 ml Output Urine Total 600 ml # Voids 2 Laboratory Tests 05/01/20 21:00: Stool Occult Blood Negative 05/02/20 08:30: White Blood Count 5.2, Red Blood Count 3.96L, Hemoglobin 12.5L, Hematocrit 37.1L , Mean Corpuscular Volume 94, Mean Corpuscular Hemoglobin 31.5H, Mean Corpuscular Hemoglobin Concent 33.6, Red Cell Distribution Width 15.5H, Platelet Count 62L, Mean Platelet Volume 9.9, Neutrophils (%) (Auto) , Lymphocytes (%) (Auto) , Monocytes (%) (Auto) , Eosinophils (%) (Auto) , Basophils (%) (Auto) , Differential Total Cells Counted 100, Neutrophils % (Manual) 60, Lymphocytes % (Manual) 15L, Monocytes % (Manual) 7, Eosinophils % (Manual) 18H, Basophils % (Manual) 0, Band Neutrophils 0, Platelet Estimate DecreasedL, Platelet Morphology Normal, Hypochromasia 1+, Anisocytosis 1+, Prothrombin Time 16.6H, Prothromb Time International Ratio 1.6H, Activated Partial Thromboplast Time 33, Sodium Level 139, Potassium Level 3.9, Chloride Level 105, Carbon Dioxide Level 30, Anion Gap 4L, Blood Urea Nitrogen 11, Creatinine 1.1, Estimat Glomerular Filtration Rate > 60, Glucose Level 134H, Calcium Level 8.2L, Total Bilirubin 6 .7H, Direct Bilirubin 5.7H, Aspartate Amino Transf (AST/SGOT) 87H, Alanine A minotransferase (ALT/SGPT) 33, Alkaline Phosphatase 162H, Total Protein 6.0L, Albumin 1.7L, Globulin 4.6, Albumin/Globulin Ratio 0.4L, Amylase Level 77, Lipase 179 Current Medications Medications (Trade) Dose Ordered Sig/Aman Route PRN Reason Start Time Stop Time Status Last Admin Dose Admin Azithromycin 250 mg/Dextrose 275 ml @ 275 mls/hr Q24HRS IV 05/03/20 10:00 05/08/20 09:59 Clonidine HCl (Catapres Tab) 0.1 mg Q6H PRN ORAL For High Blood Pressure 05/01/20 12:00 07/29/20 17:14 Levetiracetam (Keppra) 1,000 mg BEDTIME ORAL 05/01/20 21:00 05/30/20 20:59 05/01/20 20:17 Lorazepam (Ativan) 0.5 mg Q4H PRN ORAL Agitation 05/01/20 12:00 05/08/20 11:59 Metoprolol Tartrate (Lopressor) 12.5 mg Q12HR ORAL 05/01/20 21:00 07/30/20 20:59 05/01/20 20:17 Multivitamins (Multivitamins) 1 tab DAILY ORAL 05/02/20 09:00 06/01/20 08:59 05/02/20 09:45 Pantoprazole (Protonix) 40 mg DAILY ORAL 05/02/20 09:00 06/01/20 08:59 05/02/20 09:44 Potassium Chloride (K-Dur) 20 meq DAILY ORAL 05/02/20 09:00 07/31/20 08:59 05/02/20 09:45 Thiamine HCl (Vitamin B1) 100 mg DAILY ORAL 05/02/20 09:00 06/01/20 08:59 05/02/20 09:45 Assessment/Plan Assessment/Plan ProgressNote HPI Patient is a 64-year-old man with past medical history of heavy alcohol use, Hypertension,admitted with abnormalliver functions. Denies current complaints, denies nausea, vomiting, diarrhea or GI issue. He states that he is having normal bowel movements and denies diarrhea, constipation, melena, hematochezia, hematuria, dysuria or any other symptoms. The patient's symptoms were gradual onset, severity was moderate, duration since 1 week. No newcomplaints, slight improvement in LFT's, GI following, no onstruction on Abdo US CXR: RLL infiltrate - on AB Past Medical History: Alcohol use, Hypertension,Seizure History, Glaucoma Past Surgical History: Cholecystectomy Social History:Smokin cigarettes/day, heavy alcohol use, no drug use Family History:NC Review of systems: 14 point Review of Systems is otherwise negative except per HPI Allergies: ASPIRIN (Unverified Allergy, Mild, Itching, 11/18/13) Physical Exam Vital Signs Noted Physical Exam: GENERAL: Awake, WDWN EYES: Extraocular muscles are intact. Mild jaundice. ENT: External nose and ear normal in appearance. NCAT,moist mm NECK: No JVD. No meningismus. No thyromegaly. Supple. Trachea midline RESP: Normal respiratory effort. Symmetric rise. No stridor. CTAB CARDIAC: Regular rate and regular rhythm. No edema. ABDOMEN: Soft. Nondistended. Nontender, No rebound/guarding. MSK: Normal muscle tone, without rigidity. Extremities without asymmetric deformity or swelling. SKIN: Jaundiced. Warm and dry. No visible cyanosis or pallor NEUROLOGIC: Alert, oriented x3. 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 26 cm. The portal vein is patent with appropriate direction of flow. The common duct is not abnormally dilated. Common bile duct measures 5.4 mm The gallbladder demonstrates no abnormal wall thickening, pericholecystic free fluid, or shadowing echogenic foci. Visualized portions of the pancreas are within normal limits. The spleen is normal in size and echogenicity. The right kidney measures 10.73 cm in length. No contour deforming masses, hydronephrosis, or shadowing echogenic stones are identified. Renal cortical echogenicity is echogenicity. Multiple cysts demonstrated The left kidney measures 11.1 cm in length. No contour deforming masses, hydronephrosis, or shadowing echogenic stones are identified. Renal cortical echogenicity is echogenicity. Multiple cysts demonstrated Visualized portions of the aorta and IVC are unremarkable. No free fluid is identified. Davie Sanabria MD May 02, 2020 19:32
[2020-05-02 20:00] VITALS: BP 112/57
[2020-05-02] MEDS ORDERED: cefTRIAXone 1gm/D5W 55ml IVPB SCH ×2 (21:00)
[2020-05-03 00:15] VITALS: BP 112/73
--- NOTE | 2020-05-03 00:16 | NUR ---
NURSE NOTES: pt vital signs stable, no acute distress, no co pain. pt is currently asleep.
[2020-05-03 03:31] VITALS: BP 118/64
--- NOTE | 2020-05-03 03:31 | NUR ---
NURSE NOTES: vital signs are stable, pt asleep, no co pain, no acute distress observed.
--- NOTE | 2020-05-03 06:18 | NUR ---
NURSE HAND-OFF: Important Events on Shift:NA Patient Status: stable Diet: cardiac Pending Orders: NA Pending Results/Labs:NA Pending MD notification:NA Latest Vital Signs: Temperature 97.9 , Pulse 55 , B/P 118 /64 , Respiratory Rate 16 , O2 SAT 95 , Room Air, O2 Flow Rate . Vital Sign Comment: stable through the shift Latest Montiel Fall Score: 70 Fall Risk: High Risk Safety Measures: Call light Within Reach, Bed Alarm Zone 2, Side Rails Side Rails x2, Bed position Low and Locked. Fall Precautions: Patient Fall Education Report will be given to CAYETANO Ruodlph.
--- NOTE | 2020-05-03 07:09 | General Progress Note ---
Subjective ROS Limited/Unobtainable: Yes Allergies: Coded Allergies: ASPIRIN (Unverified Allergy, Mild, Itching, 11/18/13) Objective Last 24 Hour Vital Signs Date Time Temp Pulse Resp B/P (MAP) Pulse Ox O2 Delivery O2 Flow Rate FiO2 05/03/20 03:31 97.9 55 16 118/64 (82) 95 05/03/20 00:15 98.2 54 16 112/73 (86) 96 05/02/20 20:59 60 112/57 05/02/20 20:00 98.2 60 16 112/57 (75) 97 05/02/20 19:27 Room Air 05/02/20 16:00 98.2 61 18 115/74 (88) 96 05/02/20 12:00 97.1 61 18 115/68 (84) 97 05/02/20 09:00 61 105/62 05/02/20 09:00 Room Air 05/02/20 08:00 97.7 61 18 105/62 (76) 96 Intake and Output 05/02/20 05/03/20 19:00 07:00 Intake Total 330.5 ml Balance 330.5 ml IV Total 330.5 ml # Voids 3 2 Laboratory Tests 05/02/20 08:30: White Blood Count 5.2, Red Blood Count 3.96L, Hemoglobin 12.5L, Hematocrit 37.1L , Mean Corpuscular Volume 94, Mean Corpuscular Hemoglobin 31.5H, Mean Corpuscular Hemoglobin Concent 33.6, Red Cell Distribution Width 15.5H, Platelet Count 62L, Mean Platelet Volume 9.9, Neutrophils (%) (Auto) , Lymphocytes (%) (Auto) , Monocytes (%) (Auto) , Eosinophils (%) (Auto) , Basophils (%) (Auto) , Differential Total Cells Counted 100, Neutrophils % (Manual) 60, Lymphocytes % (Manual) 15L, Monocytes % (Manual) 7, Eosinophils % (Manual) 18H, Basophils % (Manual) 0, Band Neutrophils 0, Platelet Estimate DecreasedL, Platelet Morphology Normal, Hypochromasia 1+, Anisocytosis 1+, Prothrombin Time 16.6H, Prothromb Time International Ratio 1.6H, Activated Partial Thromboplast Time 33, Sodium Level 139, Potassium Level 3.9, Chloride Level 105, Carbon Dioxide Level 30, Anion Gap 4L, Blood Urea Nitrogen 11, Creatinine 1.1, Estimat Glomerular Filtration Rate > 60, Glucose Level 134H, Calcium Level 8.2L, Total Bilirubin 6.7H, Direct Bilirubin 5.7H, Aspartate Amino Transf (AST/SGOT) 87H, Alanine Aminotransferase (ALT/SGPT) 33, Alkaline Phosphatase 162H, Total Protein 6.0L, Albumin 1.7L, Globulin 4.6, Albumin/Globulin Ratio 0.4L, Amylase Level 77, Lipase 179 05/03/20 06:30: White Blood Count [Pending], Red Blood Count [Pending], Hemoglobin [Pending], Hematocrit [Pending], Mean Corpuscular Volume [Pending], Mean Corpuscular Hemoglobin [Pending], Mean Corpuscular Hemoglobin Concent [Pending], Red Cell Distribution Width [Pending], Platelet Count [Pending], Mean Platelet Volume [Pending], Neutrophils (%) (Auto) [Pending], Lymphocytes (%) (Auto) [Pending], Monocytes (%) (Auto) [Pending], Eosinophils (%) (Auto) [Pending], Basophils (%) (Auto) [Pending], Prothrombin Time [Pending], Prothromb Time International Ratio [Pending], Activated Partial Thromboplast Time [Pending], Sodium Level [Pending], Potassium Level [Pending], Chloride Level [Pending], Carbon Dioxide Level [Pending], Blood Urea Nitrogen [Pending], Creatinine [Pending], Estimat Glomerular Filtration Rate [Pending], Glucose Level [Pending], Calcium Level [Pending], Total Bilirubin [Pending], Direct Bilirubin [Pending], Aspartate Amino Transf (AST/SGOT) [Pending], Alanine Aminotransferase (ALT/SGPT) [Pending], Alkaline Phosphatase [Pending], Total Protein [Pending], Albumin [Pending], Globulin [Pending], Ammonia [Pending] Height (Feet): 5 Height (Inches): 5.00 Weight (Pounds): 142 General Appearance: no apparent distress EENT: normal ENT inspection Neck: supple Cardiovascular: normal rate Respiratory/Chest: decreased breath sounds Abdomen: normal bowel sounds, non tender, soft Extremities: non-tender Assessment/Plan Assessment/Plan: ETOH liver DZ 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
[2020-05-03 07:19] LABS: HEMATOCRIT 36.2 % (42.0-52.0); HEMOGLOBIN 12.1 G/DL (14.2-18.0); MEAN CORPUSCULAR VOLUME 93 FL (80-99); PLATELET COUNT 54 K/UL (150-450); RED BLOOD COUNT 3.89 M/UL (4.70-6.10); RED CELL DISTRIBUTION WIDTH 15.9 % (11.6-14.8); WHITE BLOOD COUNT 5.2 K/UL (4.8-10.8)
[2020-05-03 07:24] LABS: INR 1.6 (0.9-1.1)
[2020-05-03 07:34] LABS: ALANINE AMINOTRANSFERASE 33 U/L (12-78); ALBUMIN 1.8 G/DL (3.4-5.0); ALBUMIN/GLOBULIN RATIO 0.4 (1.0-2.7); ALKALINE PHOSPHATASE 144 U/L (46-116); ANION GAP 4 mmol/L (5-15); ASPARTATE AMINO TRANSFERASE 85 U/L (15-37); BILIRUBIN,TOTAL 6.6 MG/DL (0.2-1.0); BLOOD UREA NITROGEN 12 mg/dL (7-18); CALCIUM 8.2 MG/DL (8.5-10.1); CARBON DIOXIDE 27 MMOL/L (21-32); CHLORIDE 107 MMOL/L (98-107); SODIUM 138 MMOL/L (136-145)
[2020-05-03 08:00] VITALS: BP 113/66
--- NOTE | 2020-05-03 08:34 | General Progress Note ---
Subjective Allergies: Coded Allergies: ASPIRIN (Unverified Allergy, Mild, Itching, 11/18/13) Subjective back to baseline care noted alert and wants to go home Objective Last 24 Hour Vital Signs Date Time Temp Pulse Resp B/P (MAP) Pulse Ox O2 Delivery O2 Flow Rate FiO2 05/03/20 03:31 97.9 55 16 118/64 (82) 95 05/03/20 00:15 98.2 54 16 112/73 (86) 96 05/02/20 20:59 60 112/57 05/02/20 20:00 98.2 60 16 112/57 (75) 97 05/02/20 19:27 Room Air 05/02/20 16:00 98.2 61 18 115/74 (88) 96 05/02/20 12:00 97.1 61 18 115/68 (84) 97 05/02/20 09:00 61 105/62 05/02/20 09:00 Room Air Intake and Output 05/02/20 05/03/20 19:00 07:00 Intake Total 330.5 ml Balance 330.5 ml IV Total 330.5 ml # Voids 3 2 Laboratory Tests 05/03/20 06:30: White Blood Count 5.2, Red Blood Count 3.89L, Hemoglobin 12.1L, Hematocrit 36.2L , Mean Corpuscular Volume 93, Mean Corpuscular Hemoglobin 31.2H, Mean Corpuscular Hemoglobin Concent 33.5, Red Cell Distribution Width 15.9H, Platelet Count 54L, Mean Platelet Volume 10.0, Neutrophils (%) (Auto) , Lymphocytes (%) (Auto) , Monocytes (%) (Auto) , Eosinophils (%) (Auto) , Basophils (%) (Auto) , Neutrophils % (Manual) [Pending], Lymphocytes % (Manual) [Pending], Platelet Estimate [Pending], Platelet Morphology [Pending], Prothrombin Time 16.7H, Prot hromb Time International Ratio 1.6H, Activated Partial Thromboplast Time 35H, Sodium Level 138, Potassium Level 4.0, Chloride Level 107, Carbon Dioxide Level 27, Anion Gap 4L, Blood Urea Nitrogen 12, Creatinine 1.0, Estimat Glomerular Filtration Rate > 60, Glucose Level 89, Calcium Level 8.2L, Total Bilirubin 6.6H , Direct Bilirubin 5.0H, Aspartate Amino Transf (AST/SGOT) 85H, Alanine Aminotransferase (ALT/SGPT) 33, Alkaline Phosphatase 144H, Ammonia 39H, Total Protein 6.2L, Albumin 1.8L, Globulin 4.4, Albumin/Globulin Ratio 0.4L Height (Feet): 5 Height (Inches): 5.00 Weight (Pounds): 142 Objective WDWN NAD clear breath sounds bilaterally without rhonchi or wheeze [id number] without MRG NABS nontender no HSM no CCE nonfocal Assessment/Plan Assessment/Plan: Impression: Elevated LFTs EtOH dependence RLL Infiltrate Hypertension Tobacco dependence Hx of cholecystectomy Thrombocytopenia Hypokalemia Plan: dc home resume home meds etoh abstinence to see and monitor labs care noted impression, plan, and exam edited and reviewed in detail care discussed with Shalom Cunningham MD May 03, 2020 08:34
[2020-05-03] MEDS: Metoprolol Tartrate 12.5mg TAB ORAL SCH (09:34)
[2020-05-03] MEDS: Thiamine 100mg tab ORAL SCH (09:34)
[2020-05-03] MEDS ORDERED: Azithromycin 250 MG in D5W 275 ML IV SCH (10:00)
--- NOTE | 2020-05-03 11:12 | Surgery Progress Note ---
Surgery Progress Note Subjective Symptoms: improved, pain absent, tolerating diet, voiding well, passing flatus, BM Additional Comments wants to go home comfortable no complaints Objective Last 24 Hour Vital Signs Date Time Temp Pulse Resp B/P (MAP) Pulse Ox O2 Delivery O2 Flow Rate FiO2 05/03/20 09:34 85 112/57 05/03/20 03:31 97.9 55 16 118/64 (82) 95 05/03/20 00:15 98.2 54 16 112/73 (86) 96 05/02/20 20:59 60 112/57 05/02/20 20:00 98.2 60 16 112/57 (75) 97 05/02/20 19:27 Room Air 05/02/20 16:00 98.2 61 18 115/74 (88) 96 05/02/20 12:00 97.1 61 18 115/68 (84) 97 I&O Intake and Output 05/02/20 05/03/20 19:00 07:00 Intake Total 330.5 ml Balance 330.5 ml IV Total 330.5 ml # Voids 3 2 Cardiovascular: RSR Respiratory: clear Abdomen: soft, non-tender, present bowel sounds, non-distended Extremities: no edema, no tenderness, no cyanosis Laboratory Tests Test 05/03/20 05:10 05/03/20 06:30 Anti-Nuclear Antibody Screen Pending White Blood Count 5.2 K/UL (4.8-10.8) Red Blood Count 3.89 M/UL (4.70-6.10) L Hemoglobin 12.1 G/DL (14.2-18.0) L Hematocrit 36.2 % (42.0-52.0) L Mean Corpuscular Volume 93 FL (80-99) Mean Corpuscular Hemoglobin 31.2 PG (27.0-31.0) H Mean Corpuscular Hemoglobin Concent 33.5 G/DL (32.0-36.0) Red Cell Distribution Width 15.9 % (11.6-14.8) H Platelet Count 54 K/UL (150-450) L Mean Platelet Volume 10.0 FL (6.5-10.1) Neutrophils (%) (Auto) % (45.0-75.0) Lymphocytes (%) (Auto) % (20.0-45.0) Monocytes (%) (Auto) % (1.0-10.0) Eosinophils (%) (Auto) % (0.0-3.0) Basophils (%) (Auto) % (0.0-2.0) Differential Total Cells Counted 100 Neutrophils % (Manual) 53 % (45-75) Lymphocytes % (Manual) 18 % (20-45) L Monocytes % (Manual) 12 % (1-10) H Eosinophils % (Manual) 15 % (0-3) H Basophils % (Manual) 2 % (0-2) Band Neutrophils 0 % (0-8) Platelet Estimate Decreased L Platelet Morphology Normal Hypochromasia 1+ Anisocytosis 1+ Prothrombin Time 16.7 SEC (9.30-11.50) H Prothromb Time International Ratio 1.6 (0.9-1.1) H Activated Partial Thromboplast Time 35 SEC (23-33) H Sodium Level 138 MMOL/L (136-145) Potassium Level 4.0 MMOL/L (3.5-5.1) Chloride Level 107 MMOL/L (98-107) Carbon Dioxide Level 27 MMOL/L (21-32) Anion Gap 4 mmol/L (5-15) L Blood Urea Nitrogen 12 mg/dL (7-18) Creatinine 1.0 MG/DL (0.55-1.30) Estimat Glomerular Filtration Rate > 60 mL/min (>60) Glucose Level 89 MG/DL (74-106) Calcium Level 8.2 MG/DL (8.5-10.1) L Total Bilirubin 6.6 MG/DL (0.2-1.0) H Direct Bilirubin 5.0 MG/DL (0.0-0.3) H Aspartate Amino Transf (AST/SGOT) 85 U/L (15-37) H Alanine Aminotransferase (ALT/SGPT) 33 U/L (12-78) Alkaline Phosphatase 144 U/L (46-116) H Ammonia 39 umol/L (11-32) H Total Protein 6.2 G/DL (6.4-8.2) L Albumin 1.8 G/DL (3.4-5.0) L Globulin 4.4 g/dL Albumin/Globulin Ratio 0.4 (1.0-2.7) L Anti-Mitochondrial Antibody Pending F-Actin IgG Antibody Pending Plan Problems: (1) Hypokalemia (2) Thrombocytopenia (3) Tobacco dependence (4) Hypertension (5) Elevated LFTs Assessment & Plan: 62-year-old male with transaminitis. T bili noted direct bili noted. Patient with a EtOH history. States pain onset recently. Labs noted was called by his primary care physician admitted. Ultrasound reviewed no gallbladder issues no pancreatic issues liver insufficiency likely related to EtOH use. N.p.o. IV fluids meds as written GI input appreciated no acute s urgical intervention planned will follow with recommendations thank you improved diet as tolerated d/c planning outpatient f/u The liver demonstrates increased echogenicity and measures 12. 26 cm. The portal vein is patent with appropriate direction of flow. The common duct is not abnormally dilated. Common bile duct measures 5.4 mm The gallbladder demonstrates no abnormal wall thickening, pericholecystic free fluid, or shadowing echogenic foci. Visualized portions of the pancreas are within normal limits. The spleen is normal in size and echogenicity. The right kidney measures 10.73 cm in length. No contour deforming masses, hydronephrosis, or shadowing echogenic stones are identified. Renal cortical echogenicity is echogenicity. Multiple cysts demonstrated The left kidney measures 11.1 cm in length. No contour deforming masses, hydronephrosis, or shadowing echogenic stones are identified. Renal cortical echogenicity is echogenicity. Multiple cysts demonstrated Visualized portions of the aorta and IVC are unremarkable. No free fluid is identified. (6) EtOH dependence (7) Internal hemorrhoids (8) Diverticulosis (9) Osteoarthritis (10) Seizure (11) HTN (hypertension) (12) Transaminitis (13) LFT elevation (14) Hx of cholecystectomy (15) S/P ERCP Gavin Vuong May 03, 2020 11:12
[2020-05-03 12:00] VITALS: BP 105/60
--- NOTE | 2020-05-03 15:30 | NUR ---
NURSE NOTES: Received order to d/c home, discharge instructions and belonging given to the patient. IV removed prior to d/c. pt left the floor with no signs of distress or other issues at this time. pt's friend will provide transportation. I will f/u as needed.
--- NOTE | 2020-05-04 15:32 | Discharge Summary ---
Discharge Summary Discharge Summary _ DATE OF ADMISSION: 04/30/2020 DATE OF DISCHARGE: 05/03/2020 DISCHARGED BY: Dr. Hylton REASON FOR ADMISSION: 64 years old male with past medical history of heavy alcohol use, hypertension, presented for abnormal liver function test ( done as outpatient). He denied nausea ,vomiting, diarrhea or other GI issues. He reported normal bowel movement , no blood in the stool. No diarrhea or constipation. No dysuria or hematuria. Upon evaluation vital signs were stable. Laboratory work-up revealed no leukocytosis , hemoglobin 13.4, hematocrit 39.9, platelet count 78. INR 1.6. Potassium 3.4. Stable renal parameters. Total bilirubin 9.5, direct bilirubin 6.9. AST 102, ALT 37, alkaline phosphatase 158 , ammonia 67. Albumin 2.3. Lipase 181 . urinalysis revealed +1 bilirubin , no evidence of urinary tract infection. Abdominal ultrasound revealed fatty changes of the liver. No gallstones. Bilateral renal cyst. Enlarged spleen . Patient subsequently admitted for further management. CONSULTANTS: GI specialist Dr. Byrd surgery Dr. Subramanian HOSPITAL COURSE: Patient admitted to medical surgical floor. GI prophylaxis provided. Potassium was replaced Home medication continued . Patient received vitamin K. INR without change. Venous duplex bilateral lower extremity revealed no evidence of acute DVT. Chest x-ray revealed right lower lobe infiltrate, Patient started on empiric antibiotic Patient was counseled on EtOH abstinence. Total bilirubin from 9.5 down to 6.6 and direct bilirubin from 6.9 down to 5. P Potassium stable after replacement . Ammonia trended down . Platelet count down to 54. DORIS, SMA and AMA were drawn along with hepatitis panels , and results still pending at the time of this dictation. Stool for occult blood was negative. Surgery followed. Patient was able to tolerate diet. Abdominal exam was benign. No acute surgical intervention was planned. Home health was arranged to follow-up with the labs . Patient was stable for discharge . Outpatient follow-up with the primary care provider in one week and GI specialist. Abstinence from ETOH was stressed. FINAL DIAGNOSES: Pneumonia/right lower lung infiltrate Elevated LFT Alcoholic liver disease ETOH dependency Hypertension Tobacco dependency History of cholecystectomy Thrombocytopenia Hypokalemia DISCHARGE MEDICATIONS: List of medication was sent with patient. DISCHARGE INSTRUCTIONS: Patient was discharged home with home health services. Follow up with primary care provider in one week. I have been assigned to dictate discharge summary for this account. I was not involved in the patient's management. Abby Junior NP May 04, 2020 15:32
--- NOTE | 2020-05-05 12:29 | History and Physical Report ---
DATE OF ADMISSION: 04/30/2020 REASON FOR ADMISSION: Liver failure. HISTORY OF PRESENT ILLNESS: This is a 64-year-old male who is a known alcoholic, presented to my office with elevated liver enzymes. The patient also noted to have elevated bilirubin and was subjectively jaundiced. The patient had labs and drove to the emergency room. In the emergency room, the patient noted to have worsening bilirubin levels. The patient otherwise slightly altered and now being admitted for liver failure and for evaluation. The patient admits to heavy drinking and continues to drink. He was discontinued off of a statin sometime ago and this was confirmed. The patient has abnormal bowel movements. Urine has been darker over the past several weeks. Prior liver enzymes were minimally elevated and normal. The patient had liver assessment and is noted to have cirrhosis. PAST MEDICAL HISTORY: Notable for cirrhosis, hypertension, BPH, cholecystectomy, smoker and asthma. MEDICATIONS: Reviewed. ALLERGIES: Reviewed. SOCIAL HISTORY: The patient does continue to drink. He does smoke. The patient is currently comfortable. PHYSICAL EXAMINATION: GENERAL: A well-developed male, comfortable, jaundiced. VITAL SIGNS: Stable. The patient is afebrile. HEENT: Negative. NECK: Supple. LUNGS: Fairly clear and symmetric. CARDIAC: S1, S2. Regular rate and rhythm. ABDOMEN: Soft. Palpable liver edge. EXTREMITIES: No cyanosis, clubbing, or edema. NEUROLOGIC: Grossly nonfocal. No asterixis. LABORATORY DATA: Reviewed. . All liver enzymes significantly elevated. Ammonia 67. IMPRESSION: 1. Hepatic encephalopathy. 2. [id number] liver failure. 3. Cirrhosis. 4. Alcohol hepatitis. RECOMMENDATION: Abstinence for now. IV hydration. Follow up liver enzymes and monitor for improvement. Obtain GI evaluation. Resume medication and accordingly hepatotoxic drugs for now. We will follow further and consider further evaluation for detox. . Shalom Hylton M.D. DR: IRENE JOB#: [id number] CC:
== END 2020-05-03 15:45 | disposition home health service (06) | DRG 432 ==
LOC: EMR 12:28 → 4E 13:25 → EDBEDREQ 15:44
DX: K70.30 Alcoholic cirrhosis of liver without ascites (principal); J18.9 Pneumonia, unspecified organism; K72.00 Acute and subacute hepatic failure without coma; K70.10 Alcoholic hepatitis without ascites; I10 Essential (primary) hypertension; E87.6 Hypokalemia; F10.20 Alcohol dependence, uncomplicated; R56.9 Unspecified convulsions; F17.200 Nicotine dependence, unspecified, uncomplicated; Z90.49 Acquired absence of other specified parts of digestive tract; D69.6 Thrombocytopenia, unspecified; Z88.6 Allergy status to analgesic agent; M19.90 Unspecified osteoarthritis, unspecified site; R79.89 Other specified abnormal findings of blood chemistry
CPT/HCPCS: 36415; 71045; 76700; 80053; 80061; 80076; 81003; 82140; 82150; 82248; 82270; 83690; 85007; 85025; 85610; 85730; 86039; 86235; 86256; 86705; 86709; 86803; 87340; 93970; 99285; J3430; J8499

== ENCOUNTER 2020-05-30 15:46 | Emergency (ER) | payer MEDICARE, OTHER ==
[~2020-05-30] VITALS: Ht 165.1 cm; Wt 63.5 kg
[2020-05-30 15:47] VITALS: BP 132/86
--- NOTE | 2020-05-30 15:50 | NUR ---
Patient presents to the ER with c/o abdominal distention and constipation. He denies N/V/D. Admitted prior in April 2020 for the same complaint. Per patient, he stopped drinking after his prior admission in April but has since had increasing distention of his abdomen. Reports small bowel movements and also difficulty laying flat at night to sleep. Medical Hx: Alcoholic liver disease Allergy: ASA Independently ambulatory [id number]
--- NOTE | 2020-05-30 16:01 | Emergency Room Report ---
History of Present Illness General Chief Complaint: Abdominal Pain Source: Patient Present Illness HPI Disclaimer: Please note that this report is being documented using [employer] technology. This can lead to erroneous entry secondary to incorrect interpretation by the dictating instrument. HPI: 64-year-old male history of alcoholic liver disease presents for evaluation of abdominal distention. Since his admission in April 2020 patient states he has stopped drinking but has had increasing distention of his abdomen. Is now so bad that he cannot lie flat on his back to go to sleep at night. He denies nausea or vomiting. Denies diarrhea. Reports constipation. Still having small bowel movements. Denies dysuria hematuria. Denies fever or chills. Nothing makes it better, nothing makes it worse. No prior history of paracentesis. PMH: Alcoholic liver disease, cirrhosis, thrombocytopenia, coagulopathy PSH: ERCP Allergies: Aspirin Social Hx: Alcohol abuse history Allergies: Coded Allergies: ASPIRIN (Unverified Allergy, Mild, Itching, 11/18/13) COVID-19 Screening Contact w/high risk pt: No Experienced COVID-19 symptoms?: No COVID-19 Testing performed EMERGING TECHNOLOGIES DIRECTOR: No Nursing Documentation-PMH Hx Cardiac Problems: Yes Hx Hypertension: Yes Hx Diabetes: Yes Hx Cancer: No Hx Gastrointestinal Problems: Yes Hx Neurological Problems: Yes Hx Seizures: Yes Hx Memory Loss: Yes Hx Dizziness: Yes Review of Systems All Other Systems: negative except mentioned in HPI Physical Exam Vital Signs Date Time Temp Pulse Resp B/P (MAP) Pulse Ox O2 Delivery O2 Flow Rate FiO2 05/30/20 15:47 97.9 94 18 132/86 (101) 94 Room Air General: Awake and alert, no acute distress HEENT: NC/AT. EOMI. Cardiovascular: RRR. S1 and S2 normal. No murmur appreciated Resp: Normal work of breathing. No cough, wheezing or crackles appreciated Abdomen: Abdomen is distended. Diffusely tender. No overlying signs of cellulitis or infection. Skin: Intact. No abrasions, laceration or rash over the exposed skin MSK: Normal tone and bulk. Moving all extremities. No obvious deformity. Neuro: Awake and alert. Mentating appropriately. Procedures Additional Procedure Procedure Narrative Paracentesis procedure note: Bedside ultrasound used to identified large fluid pocket in the left lower preston drant of the abdomen without obvious adhesions of the abdominal wall. Area was marked and then sterilized with chlorhexidine prep. Sterile drapes applied. Insertion point was anesthetized with approximately 8 cc 1% lidocaine. Small incision made with scalpel followed by passing of catheter into the abdominal cavity. No significant bleeding. Extracted approximately 60 cc straw-colored translucent fluid from patient's abdomen and sent for analysis. Additional 3200 cc removed through Vacutainer's. No changes in vital signs during procedure. Tolerated well. No significant bleeding. Patient feels much better after procedure. Fluid sent for analysis. Sterile pressure dressing applied. Medical Decision Making Diagnostic Impression: Primary Impression: Transaminitis Additional Impressions: Thrombocytopenia Ascites Status post abdominal paracentesis Hyperbilirubinemia ER Course 62-year-old male history of alcohol abuse and cirrhosis presents with abdominal distention 1 month duration. Concern for fecal impaction, constipation, ascites, SBP among others. Abdominal x-ray does not show obstruction. Labs show elevated LFTs consistent with the patient's prior history as is elevated INR. Platelets improved from last visit. White count within normal limits. Bilirubin remains elevated. Paracentesis performed at bedside by me with approximately 3200 cc removed. Patient tolerated procedure well with no c omplications. Fluid was analyzed no evidence of SBP at this time. Patient feels much better would like to go home. He will discuss his rising bilirubin levels and other lab test with his PMD in the morning. He will follow-up with his shower enclosure installer as soon as possible. He was instructed to return with new or worsening symptoms. He understands and agrees with this treatment plan. Laboratory Tests Test 05/30/20 16:10 05/30/20 16:45 White Blood Count 8.8 K/UL (4.8-10.8) Red Blood Count 4.40 M/UL (4.70-6.10) L Hemoglobin 13.8 G/DL (14.2-18.0) L Hematocrit 40.1 % (42.0-52.0) L Mean Corpuscular Volume 91 FL (80-99) Mean Corpuscular Hemoglobin 31.5 PG (27.0-31.0) H Mean Corpuscular Hemoglobin Concent 34.5 G/DL (32.0-36.0) Red Cell Distribution Width 14.4 % (11.6-14.8) Platelet Count 101 K/UL (150-450) L Mean Platelet Volume 8.3 FL (6.5-10.1) Neutrophils (%) (Auto) 63.0 % (45.0-75.0) Lymphocytes (%) (Auto) 14.7 % (20.0-45.0) L Monocytes (%) (Auto) 8.9 % (1.0-10.0) Eosinophils (%) (Auto) 10.7 % (0.0-3.0) H Basophils (%) (Auto) 2.8 % (0.0-2.0) H Prothrombin Time 16.3 SEC (9.30-11.50) H Prothrombin Time INR 1.5 (0.9-1.1) H Activated Partial Thromboplast Time 34 SEC (23-33) H Urine Color Joaquina Urine Appearance Clear Urine pH 5 (4.5-8.0) Urine Specific [place] 1.020 (1.005-1.035) Urine Protein Negative (NEGATIVE) Urine Glucose (UA) Negative (NEGATIVE) Urine Ketones Negative (NEGATIVE) Urine Blood 2+ (NEGATIVE) H Urine Nitrite Negative (NEGATIVE) Urine Bilirubin 2+ (NEGATIVE) H Urine Ictotest Positive (NEGATIVE) Urine Urobilinogen 4 MG/DL (0.0-1.0) H Urine Leukocyte Esterase 1+ (NEGATIVE) H Urine RBC 0-2 /HPF (0 - 0) H Urine WBC 0-2 /HPF (0 - 0) Urine Squamous Epithelial Cells Few /LPF (NONE/OCC) Urine Bacteria Occasional /HPF (NONE) Sodium Level 131 MMOL/L (136-145) L Potassium Level 3.4 MMOL/L (3.5-5.1) L Chloride Level 95 MMOL/L (98-107) L Carbon Dioxide Level 31 MMOL/L (21-32) Anion Gap 5 mmol/L (5-15) Blood Urea Nitrogen 15 mg/dL (7-18) Creatinine 1.2 MG/DL (0.55-1.30) Estimated Glomerular Filtration Rate > 60 mL/min (>60) Glucose Level 108 MG/DL (74-106) H Calcium Level 8.5 MG/DL (8.5-10.1) Total Bilirubin 10.1 MG/DL (0.2-1.0) H Direct Bilirubin 7.4 MG/DL (0.0-0.3) H Aspartate Amino Transferase (AST) 150 U/L (15-37) H Alanine Aminotransferase (ALT) 60 U/L (12-78) Alkaline Phosphatase 175 U/L (46-116) H Lactate Dehydrogenase 223 U/L (81-234) Total Protein 7.4 G/DL (6.4-8.2) Albumin 2.4 G/DL (3.4-5.0) L Globulin 5.1 g/dL Albumin/Globulin Ratio 0.5 (1.0-2.7) L Lipase 216 U/L (73-393) Body Fluid Source Abdominal fluid Body Fluid Volume 24 mL Body Fluid Appearance Hazy (Clear) Body Fluid RBC 935 /CUMM Body Fluid Total Nucleated Cells 240 /CUMM Body Fluid Polynuclear WBCs (%) 28 % Body Fluid Mononuclear WBCs (%) 65 % Body Fluid Mesothelial Cells (%) 7 % Body Fluid Albumin Pending Body Fluid Lactate Dehydrogenase Pending Body Fluid Comment Pending Other X-Ray Diagnostic Results Other X-Ray Diagnostic Results : X-Ray ordered: Abdomen # of Views/Limited Vs Complete: 1 View Indication: Pain EP Interpretation: Yes Interpretation: nonspecific bowel gas, no sbo Impression: No acute disease Electronically Signed by: Electronically signed by Dr. Tonny Hdez MD Last Vital Signs Date Time Temp Pulse Resp B/P (MAP) Pulse Ox O2 Delivery O2 Flow Rate FiO2 05/30/20 15:47 97.9 94 18 132/86 (101) 94 Room Air Disposition: HOME, SELF-CARE Condition: Improved Tonny Hdez MD May 30, 2020 16:01
[2020-05-30 16:33] LABS: BASOPHILS % (AUTO) 2.8 % (0.0-2.0); EOSINOPHILS % (AUTO) 10.7 % (0.0-3.0); HEMATOCRIT 40.1 % (42.0-52.0); HEMOGLOBIN 13.8 G/DL (14.2-18.0); LYMPHOCYTES % (AUTO) 14.7 % (20.0-45.0); MEAN CORPUSCULAR VOLUME 91 FL (80-99); MONOCYTES % (AUTO) 8.9 % (1.0-10.0); PLATELET COUNT 101 K/UL (150-450); RED CELL DISTRIBUTION WIDTH 14.4 % (11.6-14.8); WHITE BLOOD COUNT 8.8 K/UL (4.8-10.8)
[2020-05-30 16:37] LABS: INR 1.5 (0.9-1.1)
[2020-05-30 16:39] LABS: APPEARANCE,URINE CLEAR; BILIRUBIN, URINE 2+ (NEGATIVE); GLUCOSE, URINE (UA) NEGATIVE (NEGATIVE); KETONES,URINE NEGATIVE (NEGATIVE); LEUKOCYTE ESTERASE ,URINE 1+ (NEGATIVE); NITRITE,URINE NEGATIVE (NEGATIVE); PH,URINE 5 (4.5-8.0); PROTEIN,URINE NEGATIVE (NEGATIVE); UROBILINOGEN,URINE 4 MG/DL (0.0-1.0)
[2020-05-30 16:40] LABS: COLOR,URINE AMBER
[2020-05-30 16:41] LABS: ANION GAP 5 mmol/L (5-15); BLOOD UREA NITROGEN 15 mg/dL (7-18); CALCIUM 8.5 MG/DL (8.5-10.1); CARBON DIOXIDE 31 MMOL/L (21-32); CHLORIDE 95 MMOL/L (98-107); CREATININE 1.2 MG/DL (0.55-1.30); POTASSIUM 3.4 MMOL/L (3.5-5.1); SODIUM 131 MMOL/L (136-145)
--- NOTE | 2020-05-30 16:43 | Diagnostic Imaging Report ---
EXAM: XR Abdomen, 1 View CLINICAL HISTORY: ABD DIST TECHNIQUE: Frontal supine view of the abdomen/pelvis. COMPARISON: No relevant prior studies available. FINDINGS: Gastrointestinal tract: Nonspecific bowel gas pattern. Bones/joints: No acute fracture. Soft tissues: Surgical clips in the right upper abdomen and pelvis. IMPRESSION: Nonspecific bowel gas pattern
[2020-05-30 16:46] LABS: ALBUMIN 2.4 G/DL (3.4-5.0)
[2020-05-30 16:53] LABS: ALANINE AMINOTRANSFERASE 60 U/L (12-78); ALBUMIN 2.3 G/DL (3.4-5.0); ALBUMIN/GLOBULIN RATIO 0.5 (1.0-2.7); ALKALINE PHOSPHATASE 175 U/L (46-116); ASPARTATE AMINO TRANSFERASE 150 U/L (15-37); BILIRUBIN,TOTAL 10.1 MG/DL (0.2-1.0)
[2020-05-30 16:54] LABS: BILIRUBIN,DIRECT 7.4 MG/DL (0.0-0.3)
--- NOTE | 2020-05-30 17:04 | NUR ---
Paracentesis completed at bedside with samples sent to the lab.
--- NOTE | 2020-05-30 17:41 | NUR ---
3200L obtained from paracentesis
== END 2020-05-30 18:40 | disposition home or self-care (01) ==
LOC: EMR 16:16
DX: R18.8 Other ascites (principal); D69.6 Thrombocytopenia, unspecified; E80.6 Other disorders of bilirubin metabolism; R74.01 Elevation of levels of liver transaminase levels; K59.00 Constipation, unspecified; Z88.6 Allergy status to analgesic agent; I10 Essential (primary) hypertension; E11.9 Type 2 diabetes mellitus without complications
CPT/HCPCS: 36415; 74018; 80053; 81003; 82040; 82248; 83615; 83690; 85025; 85610; 85730; 89051; 99284